=== PATIENT | male | born 1975 ===

== ENCOUNTER 2020-11-05 17:15 | Emergency (ER) | payer BC ==
[2020-11-05] MEDS ORDERED: Lidocaine 1% 10 ML MDV INJECT ONE (18:17)
--- NOTE | 2020-11-05 18:59 | EDM.PDOC ---
ED HPI GENERAL MEDICAL PROBLEM - General Chief Complaint: Laceration Stated Complaint: RT HAND INJURY CUT Time Seen by Provider: 11/05/20 18:11 Source of Information: Reports: Patient History Limitations: Reports: No Limitations - History of Present Illness INITIAL COMMENTS - FREE TEXT/NARRATIVE: HISTORY AND PHYSICAL: History of present illness: The patient is a 45-year-old male who presents to the emergency room with complaints of a right thenar laceration that happened around 5 PM this evening. The patient states he was cutting a strap off of the hose with a knife and sl iced his thenar area. He did not attempt to wash the area but did wrap it up with a dressing. He did not take any [id number]-qtz-cepdsac meds prior to coming to the emergency room. The patient reports he is up-to-date on his tetanus. Patient denies any fever, chills, headache, change in vision, syncope or near syncope. Denies any chest pain, back pain, shortness of breath or cough. Denies any abdominal pain, nausea, vomiting, diarrhea, constipation or dysuria. Has not noted any blood in urine or stool. Patient has been eating and drinking appropriately. Review of systems: As per history of present illness and below otherwise all systems reviewed and negative. Past medical history: As per history of present illness and as reviewed below otherwise noncontributory. Surgical history: As per history of present illness and as reviewed below otherwise noncontributory. Social history: See social history for further information Family history: As per history of present illness and as reviewed below otherwise noncontributory. Physical exam: General: Well developed and well nourished. Alert and orientated x 3. Nontoxic in appearance and in no acute distress. Vital signs are stable and have been reviewed by me. Nursing notes were reviewed. HEENT: Atraumatic, normocephalic, pupils equal and reactive bilaterally, negative for conjunctival pallor or scleral icterus, mucous membranes moist, throat clear, neck supple, nontender, trachea midline. No drooling or trismus noted. No meningeal signs. No hot potato voice noted. Lungs: Clear to auscultation bilaterally. No wheezes, rales, or rhonchi. Chest nontender. Normal work of breathing, no accessory muscles used. Heart: S1S2, regular rate and rhythm without overt murmur, gallops, or rubs. No JVD. No peripheral edema Abdomen: Soft, nondistended, nontender. Normoactive bowel sounds. Negative for masses or costovertebral tenderness. Skin: 2 cm half-habematolel laceration right thenar area. CMS intact. Minimal bleeding. Skin is warm and dry no lesions or rashes noted. Hematologic: No petechiae or purpra. Mucosa appropriate color and normal nail bed color and refill. Extremities: Atraumatic, moves all extremities per self without difficulty or deficits, negative for cords or calf pain. Neurovascular unremarkable. Neuro: Awake, alert, oriented. Cranial nerves II through XII unremarkable. Cerebellum unremarkable. Motor and sensory unremarkable throughout. Exam nonfocal. Psychiatric: Mood and affect are appropriate. Normal thought process. Answering questions appropriately. Notes: *This patient was seen and evaluated during the 2019 SARS-CoV-2 novel coronavirus pandemic period. Community viral transmission is ongoing at time of this encounter and the emergency department is operating under pandemic response procedures. Examination and discussion the patient is agreeable to approximation of the right thenar area laceration with sutures. Approximated the right thenar laceration edges with 6 sutures. The patient tolerated the procedure without difficulty I have educated the patient on suture care and removal in 7 to 10 days. The patient is agreeable with the discharge plan. I have talked with the patient about today's findings, in addition to providing specific details for plan of care. Reassessment at the time of disposition demonstrates that the patient is in no acute distress. The patient is stable for discharge, counseling was provided and we discussed in great detail signs and symptoms that would prompt them to return to the Emergency Department. Medication, follow up and supportive care measures were reviewed and discussed. Voices understanding and is agreeable to plan of care. Denies any further questions or concerns at this time. Therapeutics: Lidocaine 1% Impression: Right thenar area laceration Plan: 1. You were evaluated today on an emergent basis. Your your right base of thumb laceration was numbed and sutured with 6 sutures. Keep the area clean and dry. Keep the dressing we placed on tonight for 24 hours. After that you only have to cover the when working or there is a possibility of getting the wound dirty. Do not submerge your hand in water. You can take showers. Monitor for signs of infection such as increased redness swelling, drainage, or pain. The sutures can be removed in 7 to 10 days. You can return to the emergency room for this purpose. 2. You can alternate Tylenol and ibuprofen as needed for pain and fever management. 3. We encourage you to follow up with your primary care provider and/or recommended specialist in the next few days for re-evaluation and further care/management. 4. If your symptoms should worsen, new symptoms develop or any of the signs and symptoms we discussed should arise please return to the emergency room or call 911 (if needed). Definitive disposition and diagnosis as appropriate pending reevaluation and review of above. laceration R hand Pain Score (Numeric/FACES): 7 - Related Data Allergies Allergy/AdvReac Type Severity Reaction Status Date / Time No Known Allergies Allergy Verified 11/05/20 18:14 Home Meds: Home Meds . [No Known Home Meds] 11/05/20 [History] Past Medical History - Past Health History Medical/Surgical History: Denies Medical/Surgical History - Past Surgical History HEENT Surgical History: Reports: Naso-Sinus Surgery Social & Family History - Family History Family Medical History: No Pertinent Family History - Tobacco Use Tobacco Use Status *Q: Never Tobacco User - Recreational Drug Use Recreational Drug Use: No ED ROS GENERAL - Review of Systems Review Of Systems: Comprehensive ROS is negative, except as noted in HPI. ED EXAM, SKIN/RASH Exam: See Below (See dictation) ED SKIN PROCEDURES - Laceration/Wound Repair Right Hand Appearance: Subcutaneous Distal NVT: Neuro & Vascular Intact Anesthetic Type: Local Local Anesthesia - Lidocaine (Xylocaine): 1% Plain Local Anesthetic Volume: 3cc Skin Prep: Chlorhexidine (Hibiciens) Exploration/Debridement/Repair: Wound Explored, No Foreign Material Found Closed with: Sutures Lac/Wound length In cm: 2 Suture Size: 4-0 # of Sutures: 6 Suture Type: Prolene Course - Vital Signs Last Recorded V/S: Last Vital Signs Temp 98.6 F 11/05/20 19:06 Pulse 63 11/05/20 19:06 Resp 16 11/05/20 19:06 BP 142/96 H 11/05/20 19:06 Pulse Ox 97 11/05/20 19:06 - Orders/Labs/Meds Meds: Medications Discontinued Medications Generic Name Dose Route Start Last Admin Trade Name Freq PRN Reason Stop Dose Admin Bacitracin 1 dose 11/05/20 19:01 11/05/20 19:22 Bacitracin Oint 1 Gm U/D Packet TOP 11/05/20 19:02 1 dose ONETIME ONE Administration Lidocaine HCl 10 ml 11/05/20 18:17 Lidocaine 1% 10 Ml Mdv INJECT 11/05/20 18:18 ONETIME ONE Lidocaine HCl 5 ml 11/05/20 18:19 11/05/20 19:00 Lidocaine 1% 5 Ml Sdv INJECT 11/05/20 18:20 5 ml ONETIME ONE Administration Departure - Departure Time of Disposition: 18:58 Disposition: Home, Self-Care 01 Condition: Good Clinical Impression: Laceration - Discharge Information *PRESCRIPTION DRUG MONITORING PROGRAM REVIEWED*: Not Applicable *COPY OF PRESCRIPTION DRUG MONITORING REPORT IN PATIENT RENÉE: Not Applicable Instructions: Laceration Care, Adult Referrals: PCP,None [Primary Care Provider] - Forms: ED Department Discharge Additional Instructions: The following information is given to patients seen in the emergency department who are being discharged to home. This information is to outline your options for follow-up care. We provide all patients seen in our emergency department with a follow-up referral. The need for follow-up, as well as the timing and circumstances, are variable depending upon the specifics of your emergency department visit. If you don't have a primary care physician on staff, we will provide you with a referral. We always advise you to contact your personal physician following an emergency department visit to inform them of the circumstance of the visit and for follow-up with them and/or the need for any referrals to a consulting specialist. The emergency department will also refer you to a specialist when appropriate. This referral assures that you have the opportunity for follow-up care with a specialist. All of these measure are taken in an effort to provide you with optimal care, which includes your follow-up. Under all circumstances we always encourage you to contact your private physician who remains a resource for coordinating your care. When calling for follow-up care, please make the office aware that this follow-up is from your recent emergency room visit. If for any reason you are refused follow-up, please contact the [facility] Emergency Department at and asked to speak to the emergency department charge nurse. Sana Pacheco [facility] [address] [place] [id number] [facility] [address] [place] [address] Plan: 1. You were evaluated today on an emergent basis. Your your right base of thumb laceration was numbed and sutured with 6 sutures. Keep the area clean and dry. Keep the dressing we placed on tonight for 24 hours. After that you only have to cover the when working or there is a possibility of getting the wound dirty. Do not submerge your hand in water. You can take showers. Monitor for signs of infection such as increased redness swelling, drainage, or pain. The sutures can be removed in 7 to 10 days. You can return to the emergency room for this purpose. 2. You can alternate Tylenol and ibuprofen as needed for pain and fever management. 3. We encourage you to follow up with your primary care provider and/or recommended specialist in the next few days for re-evaluation and further care/management. 4. If your symptoms should worsen, new symptoms develop or any of the signs and symptoms we discussed should arise please return to the emergency room or call 911 (if needed). Sepsis Event Note (ED) - Evaluation Sepsis Screening Result: No Definite Risk
[2020-11-05] MEDS ORDERED: Bacitracin Oint 1 GM U/D Packet TOP ONE (19:01)
== END 2020-11-05 19:25 | disposition home or self-care (01) ==
LOC: MW.ED 17:15
DX: S61.411A Laceration without foreign body of right hand, initial encounter (principal); W26.0XXA Contact with knife, initial encounter
CPT/HCPCS: 12001; 99282-25